=== PATIENT | female | born 1955 | race Caucasian/White ===

== ENCOUNTER 2016-08-22 23:48 | Inpatient (IN) | payer BC ==
[~2016-08-22] VITALS: Ht 170.2 cm; Wt 61.7 kg
[~2016-08-22 23:48] MED LIST: BUPR-96 PO; FURO-144 PO; Folic Acid PO; MULT-479 PO; PANT40TA4 PO; POTA10TA PO; SPIR25TA PO
--- NOTE | 2016-08-23 | NUR ---
PT C/O MID ABDOMINAL PAIN X 1 DAY WITH N/V PT DENIES DIARRHEA. PT AOX4 RR EVEN AND UNLABORED. NO SOB NOTED. NAD NOTED. NO NVD AT THIS TIME. PT NOT DIAPHORETIC. PT GOWNED AND PLACED ON MONTIOR.
[2016-08-23] MEDS ORDERED: IV NS 0.9% 500 ML IV ONE (00:17)
[2016-08-23] MEDS ORDERED: IV SET PRIMARY 1 EA INFUS.SET MC ONE (00:17)
[2016-08-23] MEDS ORDERED: ONDANSETRON HCL/PF 4 MG/2 ML VIAL ONE (00:17)
[2016-08-23] MEDS ORDERED: MORPHINE SULFATE INJ 4 MG/ML DISP.SYRIN ONE ×2 (00:17→01:47)
[2016-08-23 00:27] LABS: BASOPHILS # (AUTO) 0.1 /CMM (0.0-0.2); BASOPHILS % (AUTO) 0.7 % (0.0-2.0); EOSINOPHILS % (AUTO) 0.1 % (0.0-6.0); HEMATOCRIT 30 % (33-45); HEMOGLOBIN 9.7 g/dL (11.5-14.8); LYMPHOCYTES # (AUTO) 1.3 /CMM (0.8-4.8); LYMPHOCYTES % (AUTO) 13.4 % (20.0-44.0); MEAN CORPUSCULAR HEMOGLOBIN 24 PG (26.0-33.0); MEAN CORPUSCULAR HGB CONC 32 g/dl (31.0-36.0); MEAN CORPUSCULAR VOLUME 73 fL (82-100); MONOCYTES # (AUTO) 0.2 /CMM (0.1-1.30); MONOCYTES % (AUTO) 2.4 % (2.0-12.0); NEUTROPHILS # (AUTO) 7.8 /CMM (1.8-8.9); NEUTROPHILS % (AUTO) 83.4 % (43.0-81.0); PLATELET COUNT (AUTO) 254 /CMM (150-450); RDW COEFFICIENT OF VARIATION 20.7 (11.5-15.0); RED BLOOD CELL COUNT(AUTO) 4.09 MIL/uL (4.0-5.2); WHITE BLOOD COUNT (AUTO) 9.3 K/uL (4.3-11.0)
[2016-08-23] MEDS ORDERED: IV NS 0.9% 500 ML BAG IV ONE (00:30)
[2016-08-23] MEDS ORDERED: MORPHINE SULFATE INJ 2 MG/ML DISP.SYRIN IV ONE ×2 (00:30→02:00)
[2016-08-23] MEDS ORDERED: ONDANSETRON HCL/PF 4 MG/2 ML VIAL IVP ONE (00:30)
--- NOTE | 2016-08-23 00:49 | NUR ---
URINE COLLECTED. CALLED LAB FOR SECURITY REP.
[2016-08-23 01:05] LABS: APPEARANCE,URINE SL CLOUDY (CLEAR); BILIRUBIN,URINE NEGATIVE (NEGATIVE); BLOOD, URINE NEGATIVE Ery/uL (NEGATIVE); COLOR,URINE YELLOW (YELLOW); KETONES,URINE 1+ (NEGATIVE); LEUKOCYTE ESTERASE ,URINE TRACE (NEGATIVE); NITRITE, URINE POSITIVE (NEGATIVE); PROTEIN,URINE NEGATIVE (NEGATIVE); UGLUCOSE NEGATIVE (NEGATIVE); UROBILINOGEN,URINE 0.2 EU/dL (0.2)
[2016-08-23 01:32] LABS: ADD URINE CULTURE YES; BACTERIA,URINE 4+ /HPF (None Seen); SQUAMOUS EPITHELIAL CELL,UR Few /HPF (None Seen)
[2016-08-23 01:35] LABS: ALANINE AMINOTRANSFERASE 27 U/L (12-78); ALBUMIN 4.1 g/dL (3.4-5.0); ALKALINE PHOSPHATASE 75 U/L (46-116); ASPARTATE AMINOTRANSFERASE 29 U/L (15-37); BILIRUBIN,DIRECT 0.1 mg/dL (0.0-0.2); BILIRUBIN,TOTAL 0.6 mg/dL (0.2-1.0); CALCIUM, SERUM 10.8 mg/dL (8.5-10.1); CARBON DIOXIDE 22 mmol/L (21-32); CHLORIDE 99 mmol/L (98-107); GFR 56 mL/min (>60); GLUCOSE 143 mg/dL (74-106); LIPASE 117 U/L (73-393); POTASSIUM 4.3 mmol/L (3.5-5.1); SODIUM SERUM 136 mmol/L (136-145); TOTAL PROTEIN, SERUM 8.6 g/dL (6.4-8.2); TROPONIN I < 0.017 ng/mL (0.00-0.056); UREA NITROGEN, BLOOD 16 mg/dL (7-18)
[2016-08-23] MEDS ORDERED: IV D5W 50 ML IV ONE ×2 (02:30→04:33)
[2016-08-23] MEDS ORDERED: IV SET PRIMARY PUMP SET 1 EA INFUS.SET MC ONE ×2 (02:30→03:40)
[2016-08-23] MEDS ORDERED: CEFTRIAXONE 1 G VIAL ONE (02:30)
[2016-08-23] MEDS ORDERED: CEFTRIAXONE 1GM BAG (ER ONLY) 1 GM/50 ML PIGGYBACK IV ONE (02:30)
--- NOTE | 2016-08-23 02:35 | NUR ---
CALLED DR. CHRISTIAN ([phone]) FOR SURGICAL CONSULT; CALL TRANSFERED TO DR. ALEX.
--- NOTE | 2016-08-23 02:40 | NUR ---
DR. ALEX AT BEDSIDE FOR EVAL OF HERNIA
--- NOTE | 2016-08-23 02:47 | NUR ---
SOLOMON YANEZ PAGED
[2016-08-23] MEDS ORDERED: IV NS 0.9% 1,000 ML IV PRN (02:55)
[2016-08-23] MEDS ORDERED: Z GUARD REMEDY 2 OZ OINT TP PRN (03:00)
[2016-08-23] MEDS ORDERED: ZOLPIDEM TARTRATE 5 MG TABLET PO PRN (03:00)
[2016-08-23] MEDS ORDERED: MAG HYDROX/AL HYDROX/SIMETH 30 ML UDC PO PRN (03:00)
[2016-08-23] MEDS ORDERED: MAGNESIUM HYDROXIDE 30 ML UDC PO PRN (03:00)
[2016-08-23] MEDS ORDERED: ACETAMINOPHEN 325 MG TABLET PO PRN (03:00)
[2016-08-23] MEDS ORDERED: ONDANSETRON HCL/PF 4 MG/2 ML VIAL IVP PRN (03:00)
[2016-08-23] MEDS ORDERED: HYDROCODONE/APAP 5/325MG 1 EACH TABLET PO PRN ×2 (03:00→13:30)
--- NOTE | 2016-08-23 03:27 | NUR ---
REPORT GIVEN TO REJI HANDY FOR BETHANIE BED 120-B
[2016-08-23 03:40] VITALS: BP 109/66
[2016-08-23] MEDS ORDERED: IV NS 0.9% 1,000 ML ONE (03:40)
[2016-08-23] MEDS ORDERED: HYDROMORPHONE 1 MG/1 ML DISP.SYRIN ONE (03:51)
[2016-08-23 04:00] VITALS: BP 109/66
--- NOTE | 2016-08-23 04:00 | NUR ---
RN NOTES 0340 - ADMITTED 61Y/O FEMALE ACCOMPANIED BY VIA STRETCHER. AOX4 ABLE TO MAKE KNOWN NEEDS, CAME WITH COMPLAIN OF ABDOMINAL PAIN X 1 DAY WITH N/V IN ER. NO SOB OR RESP. DISTRESS IN RA SATING 97% PT IS ADMITTED UNDER SOLOMON JARRETT DIAGNOSED WITH SBO SECONDARY TO STRANGULATED HERNIA WITH HX. OF LEFT DELTOID MELANOMA, AND LEFT ARM MELANOMA REMOVAL, MID ABD. HERNIA , BREAST IMPLANT, TUMMY TUCK NKA. ABLE TO AMBULATE WELL. IV SITE ON RAC G 18 AND LAC G20 RUNNING WITH NS @ 100CC/HR INTACT AND PATENT. PT COMPLAINING OF PAIN AND STATED THAT STARTED TO INCREASE MORE. PLAN OF CARE INFORMED VERBALIZED UNDERSTANDING. WILL CONTINUE TO MONITOR. KEPT PT CLEAN AND COMFORTABLE IN BED. CLARIBEL LIGHT WITHIN REACH INSTRUCTION PROVIDED. ALL NEEDS ATTENDED. WILL CONTINUE TO MONITOR.
[2016-08-23] MEDS: HYDROMORPHONE INJ 2 MG/ML DISP.SYRIN IV PRN ×5 (04:03→22:23)
[2016-08-23] MEDS ORDERED: PIPERACILLIN /TAZOBACTAM 3.375 G VIAL IV ONE (04:32)
[2016-08-23] MEDS ORDERED: SECONDARY IV SET 1 EA INFUS.SET MC ONE ×2 (04:33→19:40)
--- NOTE | 2016-08-23 04:35 | NUR ---
RN NOTES PRN PAIN MEDICINE GIVEN ORDERED FOR ABDOMINAL PAIN. WILL CONTINUE TO MONITOR.
[2016-08-23] MEDS: PIPERACILLIN /TAZOBACTAM 3.375 G in IV D5W 50 ML IV SCH ×4 (05:09→23:16)
--- NOTE | 2016-08-23 06:40 | NUR ---
RN NOTES PT RESTING ON BED. TOLERATED PAIN AT THIS TIME AT SCALE OF 3/10. ALL NEEDS ATTENDED. NO EXCRUCIATING PAIN NOTED. REMAINED AOX 4 VERBALIZED NEEDS. IVF ONGOING ORDERED. EXPLAINED REGARDING THE PLAN OF CARE. KEPT CLEAN AND COMFORTABLE IN BED. ASSISTED TO THE BATHROOM. CALL LIGHT KEPT WITHIN EASY REACH. WILL ENDORSED CONTINUITY OF CARE TO AM NURSE.
[2016-08-23 06:41] LABS: BASOPHILS % (AUTO) 0.5 % (0.0-2.0); EOSINOPHILS % (AUTO) 0.1 % (0.0-6.0); HEMATOCRIT 27 % (33-45); HEMOGLOBIN 8.9 g/dL (11.5-14.8); LYMPHOCYTES # (AUTO) 1.4 /CMM (0.8-4.8); LYMPHOCYTES % (AUTO) 16.4 % (20.0-44.0); MEAN CORPUSCULAR HEMOGLOBIN 24 PG (26.0-33.0); MEAN CORPUSCULAR HGB CONC 32 g/dl (31.0-36.0); MEAN CORPUSCULAR VOLUME 74 fL (82-100); MONOCYTES # (AUTO) 0.4 /CMM (0.1-1.30); NEUTROPHILS # (AUTO) 6.7 /CMM (1.8-8.9); PLATELET COUNT (AUTO) 200 /CMM (150-450); RDW COEFFICIENT OF VARIATION 20.4 (11.5-15.0); WHITE BLOOD COUNT (AUTO) 8.6 K/uL (4.3-11.0)
[2016-08-23 07:01] LABS: ALBUMIN 3.4 g/dL (3.4-5.0); BILIRUBIN,TOTAL 0.4 mg/dL (0.2-1.0); CALCIUM, SERUM 9.6 mg/dL (8.5-10.1); CREATININE 0.9 mg/dL (0.6-1.3); MAGNESIUM 1.8 mg/dL (1.8-2.4); PHOSPHORUS 4.2 mg/dL (2.5-4.9); POTASSIUM 4.2 mmol/L (3.5-5.1); TOTAL PROTEIN, SERUM 7.4 g/dL (6.4-8.2)
[2016-08-23 07:13] LABS: INR 1.04 (0.87-1.13); PROTHROMBIN TIME 11.1 SECS (9.5-12.7)
--- NOTE | 2016-08-23 07:28 | NUR ---
INITIAL NOTE patient resting in bed, A+Ox4. states having 7/10 pain, requesting Dilaudid. Abdomen noted hard, non-distended, protruding hernia @ umbilicus. skin intact. bowel sounds hypoactive. LAC IV patent with IV fluids infusing- NS @ 100. Breathing even and unlabored, WNL, on room air. discussed plan of care, plan for surgery today, no order yet. call light in reach.
[2016-08-23 08:00] VITALS: BP 116/61
[2016-08-23] MEDS: PANTOPRAZOLE 40 MG VIAL IV SCH (08:42)
[2016-08-23 09:17] LABS: ANISOCYTOSIS 1+; HYPOCHROMASIA 1+; LYMPHOCYTES % (MANUAL) 11 % (16-48); MONOCYTES % (MANUAL) 3 % (0-11.0); NEUTROPHILS % (MANUAL) 86 (42-76); PLATELET ESTIMATE ADEQUATE
[2016-08-23] MEDS ORDERED: BUPIVACAINE MPF W/EPI 0.25% 30 ML VIAL ONE (09:44)
[2016-08-23] MEDS ORDERED: LIDOCAINE HCL/PF 1% 30 ML SDV ONE (09:44)
[2016-08-23] MEDS ORDERED: MIDAZOLAM HCL 2 MG/2ML VIAL ONE (10:04)
[2016-08-23] MEDS ORDERED: FENTANYL PF 100MCG/2ML AMPUL ONE ×2 (10:04)
[2016-08-23] MEDS ORDERED: ROCURONIUM BROMIDE 50 MG/5 ML ONE (10:04)
--- NOTE | 2016-08-23 10:06 | NUR ---
rn note Dr. Barry Her gave telephone order to obtain consent for exploratory laparotomy with possible reduction of bowel and repair of umbilical hernia. Patient signed consent for procedure, anesthesia and blood transfusion. 2 OR RNs at bed side during consent. left to OR in stable condition accompanied by staff.
[2016-08-23 12:00] VITALS: BP 118/67
[2016-08-23] MEDS ORDERED: IV LR 1000 ML 1,000 ML IV PRN (13:30)
[2016-08-23 16:00] VITALS: BP 114/62
[2016-08-23] MEDS: SPIRONOLACTONE 25 MG TABLET PO SCH (17:10)
--- NOTE | 2016-08-23 17:58 | NUR ---
rn note patient returned from surgery at approximately 1300 in stable condition. VSS. abd dressing CDI. returned with yip catheter. Called surgeon and asked if ok to remove. said yes remove.
--- NOTE | 2016-08-23 18:46 | NUR ---
rn note Dr. Núñez at nurses station reviewing pathology report, also notified dr. toure of pathology report in chart. removed yip catheter. no complications. patient tolerated procedure. provided bed bath and linen change.
--- NOTE | 2016-08-23 18:47 | NUR ---
consent signed for CT with contrast. patient verbalized understanding.
--- NOTE | 2016-08-23 19:30 | NUR ---
MS RN INITIAL NOTE PT RECEIVED RESTING IN BED. A/O X4 AND ABLE TO MAKE NEEDS KNOWN. ON ROOM AIR AND SATING WELL. [facility] SITE RAC #18G CLEAN, DRY AND INTACT. IV FLUIDS WELL TOLERATED. NO C/O PAIN AT THIS TIME. INFORMED PT OF NPO STATUS STARTING AT 3AM FOR PROCEDURE IN THE MORNING. PT VERBALIZED UNDERSTANDING. ALL SAFETY MEASURES IN PLACE. CALL LIGHT WITHIN EASY REACH. WILL CONTINUE TO MONITOR.
--- NOTE | 2016-08-23 19:35 | NUR ---
closing note left patient in stable condition. LOC and breathing normal. bowel sounds present. no gas passed. endorsed to night nurse and to monitor urine u/o s/p f/c removal.. endorsed to plan NPO for CT exam in AM. NPO @ approximately 3am, radiologist confirmed CT in AM. Patient tolerated clear liquid diet. no nausea or vomiting. call light in reach.
[2016-08-23 19:45] LABS: URIC ACID 5.9 mg/dL (2.6-7.2)
[2016-08-23 20:00] VITALS: BP 97/66
[2016-08-23] MEDS: SOD FERRIC GLUC 125 MG in IV NS 0.9% 100 ML IV SCH (20:17)
[2016-08-24] VITALS (11 sets, daily range): BP systolic 90–110; BP diastolic 48–70
[2016-08-24] MEDS: IV NS 0.9% 1,000 ML IV PRN (00:04)
--- NOTE | 2016-08-24 01:45 | NUR ---
MS RN NOTE CONTINUATION OF CARE ENDORSED.
--- NOTE | 2016-08-24 01:45 | NUR ---
RN NOTE RECEIVED PATIENT IN NO ACUTE DISTRESS IN BED. PT IS A/O X 4 AND ABLE TO MAKE NEEDS KNOWN. RECEIVED REPORT FROM ELIAS MENDOZA FOR CONTINUITY OF CARE. WILL CONTINUE TO MONITOR FOR ANY CHANGES IN CONDITION.
[2016-08-24] MEDS: HYDROMORPHONE INJ 2 MG/ML DISP.SYRIN IV PRN ×5 (03:00→20:31)
--- NOTE | 2016-08-24 03:00 | NUR ---
RN NOTE UNSCHEDULED ADMINISTRATION DUE TO BATTERY DYING ON COMPUTER PRIOR TO SAVE.
[2016-08-24 06:05] LABS: BASOPHILS % (AUTO) 0.4 % (0.0-2.0); EOSINOPHILS % (AUTO) 0.2 % (0.0-6.0); HEMATOCRIT 24 % (33-45); HEMOGLOBIN 7.6 g/dL (11.5-14.8); LYMPHOCYTES % (AUTO) 26.1 % (20.0-44.0); MEAN CORPUSCULAR HEMOGLOBIN 23 PG (26.0-33.0); MEAN CORPUSCULAR HGB CONC 31 g/dl (31.0-36.0); MEAN CORPUSCULAR VOLUME 75 fL (82-100); MONOCYTES # (AUTO) 0.5 /CMM (0.1-1.30); MONOCYTES % (AUTO) 6.1 % (2.0-12.0); NEUTROPHILS # (AUTO) 5.2 /CMM (1.8-8.9); NEUTROPHILS % (AUTO) 67.2 % (43.0-81.0); PLATELET COUNT (AUTO) 164 /CMM (150-450); RDW COEFFICIENT OF VARIATION 20.8 (11.5-15.0); RED BLOOD CELL COUNT(AUTO) 3.26 MIL/uL (4.0-5.2); WHITE BLOOD COUNT (AUTO) 7.8 K/uL (4.3-11.0)
[2016-08-24] MEDS: PIPERACILLIN /TAZOBACTAM 3.375 G in IV D5W 50 ML IV SCH ×3 (06:05→17:45)
[2016-08-24 06:17] LABS: CALCIUM, SERUM 8.9 mg/dL (8.5-10.1); CREATININE 0.8 mg/dL (0.6-1.3); MAGNESIUM 1.6 mg/dL (1.8-2.4); PHOSPHORUS 3.3 mg/dL (2.5-4.9); POTASSIUM 4.2 mmol/L (3.5-5.1)
--- NOTE | 2016-08-24 06:51 | NUR ---
RN CLOSING NOTE PT REMAINS IN NO ACUTE DISTRESS. PT DID NOT HAVE ANY SIGNIFICANT CHANGE IN CONDITION DURING SHIFT. ALL NEEDS MET ALL ORDERS CARRIED OUT. WILL ENDORSE TO AM RN FOR CONTINUITY OF CARE.
--- NOTE | 2016-08-24 07:00 | NUR ---
MS RN INITIAL NOTE PT RECEIVED RESTING IN BED. A/O X4 AND ABLE TO MAKE NEEDS KNOWN. ON ROOM AIR AND SATING WELL. [facility] SITE RAC #18G CLEAN, DRY AND INTACT. IV FLUIDS WELL TOLERATED. NO C/O PAIN AT THIS TIME. INFORMED PT OF NPO STATUS STARTING AT 3AM FOR PROCEDURE IN THE MORNING. PT VERBALIZED UNDERSTANDING. ALL SAFETY MEASURES IN PLACE. CALL LIGHT WITHIN EASY REACH. WILL CONTINUE TO MONITOR
[2016-08-24] MEDS ORDERED: PANTOPRAZOLE 40 MG TABLET.DR PO SCH (07:30)
[2016-08-24] MEDS: BUPROPION XL 150 MG TAB.ER.24 PO SCH (08:48)
[2016-08-24] MEDS: PANTOPRAZOLE 40 MG VIAL IV SCH (08:48)
[2016-08-24] MEDS: MULTIVITAMINS W-MINERALS 1 TAB TABLET PO SCH (08:48)
[2016-08-24] MEDS: SPIRONOLACTONE 25 MG TABLET PO SCH ×2 (08:48→17:45)
[2016-08-24] MEDS: FUROSEMIDE 40 MG TABLET PO SCH (08:48)
[2016-08-24] MEDS ORDERED: IOHEXOL-300 100 ML VIAL IV ONE (08:55)
[2016-08-24] MEDS ORDERED: IV NS 0.9% 250 ML IV ONE ×2 (08:55→18:47)
[2016-08-24] MEDS ORDERED: CT SWABBABLE VALVE TRANS SET 1 EA INFUS.SET MC ONE (08:55)
[2016-08-24] MEDS: Magnesium 1GM/D5W 100ML PREMIX 100 ML IV SCH ×2 (12:03→13:53)
[2016-08-24] MEDS: MORPHINE SULFATE INJ 2 MG/ML DISP.SYRIN IV PRN (12:40)
[2016-08-24] MEDS ORDERED: CEFTRIAXONE 1 G in IV D5W 50 ML IV SCH (13:00)
[2016-08-24] MEDS ORDERED: Magnesium 1GM/D5W 100ML PREMIX 100 ML IV SCH (13:00)
[2016-08-24] MEDS: SOD FERRIC GLUC 125 MG in IV NS 0.9% 100 ML IV SCH (13:37)
[2016-08-24] MEDS ORDERED: IV SET PRIMARY PUMP SET 1 EA INFUS.SET MC ONE (13:38)
[2016-08-24] MEDS ORDERED: SOD FERRIC GLUC 125 MG in IV NS 0.9% 100 ML IV SCH (14:00)
[2016-08-24 14:03] LABS: CARCINOEMBRYONIC AG (CEA) 3.2 ng/mL (0.0-4.7)
[2016-08-24] MEDS ORDERED: BLOOD IV SET 1 EA INFUS.SET MC ONE (18:47)
--- NOTE | 2016-08-24 19:00 | NUR ---
RN INITIAL NOTE RECEIVED PATIENT IN NO ACUTE DISTRESS IN BED. PT IS A/O X 4 AND ABLE TO MAKE NEEDS KNOWN. RECEIVED REPORT FROM BAILEY FOR CONTINUITY OF CARE. WILL CONTINUE TO MONITOR FOR ANY CHANGES IN CONDITION.
--- NOTE | 2016-08-24 19:20 | NUR ---
pt in stable condition,no c/o pain,no s/s of distress.breathing even and unlabored.all m.d orders noted and carried out.endorsed to next shift for continuity of care
--- NOTE | 2016-08-24 20:03 | NUR ---
RN NOTE: PT IS RECEIVING ONE UNIT OF BLOOD. BLOOD STARTED AT 2002. VITALS ARE STABLE TEMP: 97.6 PULSE: 69 RESP: 16 O2:96 ROOM AIR BP: 97/55
--- NOTE | 2016-08-24 20:18 | NUR ---
RN NOTES: PT RECEIVING BLOOD TRANSFUSION. 15 MIN CHECK. PT IS TOLERATING WELL WITH NO S/S OF DISTRESS OR DISCOMFORT. VITAL SIGNS ARE STABLE. TEMP: 97.5 PULSE: 76 RES: 18 B/P: 103/52. WILL CONTINUE TO MONITOR.
--- NOTE | 2016-08-24 20:33 | NUR ---
RN NOTE: PT RECEIVING BLOOD TRANSFUSION. 2ND 15 MIN CHECK. PT TOLERATING WELL WITH NO S/S OF DISTRESS OR DISCOMFORT. PT VITALS ARE STABLE. TEMP: 98.6 PULSE: 75 RESP: 17 B/P: 104/70. WILL CONTINUE TO MONITOR PT.
--- NOTE | 2016-08-24 21:03 | NUR ---
RN NOTES: PT RECEIVING BLOOD TRANSFUSION. 30 MIN CHECK @ 2103: PT IS TOLERATING TRANSFUSION WELL. NO S/S OF DISTRESS. VITAL SIGNS ARE STABLE TEMP: 97.6 PULSE: 65 RESP: 18 B/P 91/48. PT IS ALERT AND ORIENTED X4. WILL CONTINUE TO MONITOR.
--- NOTE | 2016-08-24 23:38 | NUR ---
RN NOTES: PT IS RECEIVING BLOOD TRANSFUSION. PT HAS COMPLETED TRANSFUSION @ 2339 PT TOLERATED TRANSFUSION WELL. PT IS ALERT AND ORIENTED X4. PT VITALS ARE WITHIN NORMAL RANGE. TEMP: 97.6 PULSE: 81 RESP: 18 B/P: 103/55. WILL CONTINUE TO MONITOR PT.
--- NOTE | 2016-08-24 23:53 | NUR ---
RN NOTES: PT RECEIVED BLOOD TRANSFUSION ENDED AT 3948. PT IS DOING WELL POST TRANSFUSION. PT IS AWAKE/ALERT AND ORIENTED X4. PT VITALS ARE WITHIN NORMAL RANGE TEMP: 97.5 PULSE: 78 RESP: 18 O2: 97 B/P105/63
[2016-08-25] MEDS: PIPERACILLIN /TAZOBACTAM 3.375 G in IV D5W 50 ML IV SCH ×4 (00:22→17:59)
[2016-08-25] MEDS: HYDROMORPHONE INJ 2 MG/ML DISP.SYRIN IV PRN ×5 (00:34→20:10)
[2016-08-25] MEDS ORDERED: IV NS 0.9% 1,000 ML ONE (01:26)
[2016-08-25] MEDS: IV NS 0.9% 1,000 ML IV PRN ×2 (01:33→22:55)
[2016-08-25] MEDS: MORPHINE SULFATE INJ 2 MG/ML DISP.SYRIN IV PRN (02:31)
[2016-08-25 04:00] VITALS: BP_SYST 109; BP_SYST 98; BP_DIAS 50; BP_DIAS 56
--- NOTE | 2016-08-25 06:58 | NUR ---
RN CLOSING NOTES: PT IS AWAKE IN BED AND STABLE. A/O X4. PT DENIES PAINS. PT SHOW NO S/S OF DISTRESS OR DISCOMFORT. IV INTACT AND PATENT RUNNING IV FLUIDS. PATIENT TOLERATED ALL CARE WELL THROUGHOUT THE PM SHIFT. PT HAS BEEN ENDORSED TO AM SHIFT FOR KATHRIN.
[2016-08-25 07:01] LABS: CALCIUM, SERUM 8.5 mg/dL (8.5-10.1); CREATININE 0.8 mg/dL (0.6-1.3); MAGNESIUM 1.5 mg/dL (1.8-2.4); POTASSIUM 3.4 mmol/L (3.5-5.1)
[2016-08-25 07:05] LABS: BASOPHILS % (AUTO) 0.4 % (0.0-2.0); EOSINOPHILS # (AUTO) 0.1 /CMM (0.0-0.7); EOSINOPHILS % (AUTO) 1.5 % (0.0-6.0); HEMATOCRIT 28 % (33-45); HEMOGLOBIN 8.9 g/dL (11.5-14.8); LYMPHOCYTES # (AUTO) 2.8 /CMM (0.8-4.8); MEAN CORPUSCULAR HEMOGLOBIN 24 PG (26.0-33.0); MEAN CORPUSCULAR HGB CONC 32 g/dl (31.0-36.0); MEAN CORPUSCULAR VOLUME 76 fL (82-100); MONOCYTES # (AUTO) 0.7 /CMM (0.1-1.30); MONOCYTES % (AUTO) 8.4 % (2.0-12.0); NEUTROPHILS # (AUTO) 5.1 /CMM (1.8-8.9); NEUTROPHILS % (AUTO) 57.7 % (43.0-81.0); PLATELET COUNT (AUTO) 155 /CMM (150-450); RDW COEFFICIENT OF VARIATION 19.6 (11.5-15.0); RED BLOOD CELL COUNT(AUTO) 3.67 MIL/uL (4.0-5.2); WHITE BLOOD COUNT (AUTO) 8.9 K/uL (4.3-11.0)
--- NOTE | 2016-08-25 07:20 | NUR ---
MS RN INITIAL NOTES: Rec'd pt awake on bed, A&O x4, not in any distress, c/o abdominal pain 9/10, on pain meds [id number]. Pt on room air, no SOB, saturating at 94%. Pt has R wrist G22 IV line, patent, clean, dry, and intact, no signs of infection/ infiltration noted, w/ NS 1L x 75 cc/hr, infusing well. Pt has RFA G20, SL, flushed, patent, clean, dry, and intact, no signs of infection/ infiltration noted. Needs attended. Provided comfort and safety measures. Call light placed w/in reached. Bed kept low and in locked position. Will continue to monitor.
[2016-08-25 08:00] VITALS: BP 95/57
[2016-08-25] MEDS: PANTOPRAZOLE 40 MG VIAL IV SCH (08:34)
[2016-08-25] MEDS: BUPROPION XL 150 MG TAB.ER.24 PO SCH (08:35)
[2016-08-25] MEDS: MULTIVITAMINS W-MINERALS 1 TAB TABLET PO SCH (08:35)
[2016-08-25] MEDS: FUROSEMIDE 40 MG TABLET PO SCH (09:00)
[2016-08-25] MEDS: SPIRONOLACTONE 25 MG TABLET PO SCH ×2 (09:00→16:40)
--- NOTE | 2016-08-25 09:39 | NUR ---
MS RN NOTES: Pt seen and examined by Dr. Land, orders made and carried out.
--- NOTE | 2016-08-25 09:47 | NUR ---
MS RN NOTES: Pt's BP rechecked twice, SBP <100 (99/56 and 92/54), BP meds hold for now.
[2016-08-25] MEDS ORDERED: POTASSIUM CHLORIDE 20 MEQ TAB.PRT.SR PO ONE (10:00)
--- NOTE | 2016-08-25 10:08 | NUR ---
MS RN NOTES: Pt seen and examined by Dr. Ashby.
[2016-08-25] MEDS: Magnesium 1GM/D5W 100ML PREMIX 100 ML IV SCH ×4 (10:14→14:13)
[2016-08-25] MEDS: SOD FERRIC GLUC 125 MG in IV NS 0.9% 100 ML IV SCH (14:35)
[2016-08-25 16:00] VITALS: BP 102/56
--- NOTE | 2016-08-25 19:42 | NUR ---
MS RN CLOSING NOTES: No acute changes noted w/in shift. Pt A&O x4, not in any distress. Pt on room air, no SOB, saturating at 94%. Pt has R wrist G22 IV line, patent, clean, dry, and intact, no signs of infection/ infiltration noted, w/ NS 1L x 75 cc/hr, infusing well. Pt has RFA G20, SL, flushed, patent, clean, dry, and intact, no signs of infection/ infiltration noted. Kept comfortable, warm, & rested. Call light placed w/in reached. Bed kept low and in locked position. Endorsed to PM RN.
[2016-08-25 20:00] VITALS: BP 98/55
[2016-08-26] MEDS: HYDROMORPHONE INJ 2 MG/ML DISP.SYRIN IV PRN ×2 (00:14→05:13)
[2016-08-26] MEDS: PIPERACILLIN /TAZOBACTAM 3.375 G in IV D5W 50 ML IV SCH ×2 (00:19→05:31)
[2016-08-26 04:00] VITALS: BP 97/53
[2016-08-26 07:34] LABS: CALCIUM, SERUM 8.8 mg/dL (8.5-10.1); CREATININE 0.7 mg/dL (0.6-1.3); POTASSIUM 4.2 mmol/L (3.5-5.1)
[2016-08-26 08:00] VITALS: BP 128/77
--- NOTE | 2016-08-26 08:00 | NUR ---
MS1/RN AM SHIFT INITIAL NOTES RECEIVED PT AWAKE SITTING IN BED, PT A/O X 4, COMPLAINT OF GENERALIZED PAIN RATED 8/10. DENIES ANY OTHER SYMPTOMS. ON ROOM AIR SATURATING @ 97%. WITH ON GOING IV HYDRATION WITH NS @ 75CC/HR, IV SITE PATENT WITH NO S/S OF INFECTION. SURGICAL SITE IN THE ABDOMEN AREA CLEAN & DRY, HEALING VERY WELL. SCHEDULED AM MEDS TO BE GIVEN, TO INCLUDE PRN MEDICATION FOR PAIN. CL WITH REACHED AND SAFETY MAINTAINED. ON GOING MONITORING.
[2016-08-26] MEDS: MORPHINE SULFATE INJ 2 MG/ML DISP.SYRIN IV PRN (08:33)
[2016-08-26] MEDS: PANTOPRAZOLE 40 MG VIAL IV SCH (08:33)
[2016-08-26] MEDS: FUROSEMIDE 40 MG TABLET PO SCH (08:34)
[2016-08-26] MEDS: SPIRONOLACTONE 25 MG TABLET PO SCH (08:34)
[2016-08-26] MEDS: BUPROPION XL 150 MG TAB.ER.24 PO SCH (08:34)
[2016-08-26] MEDS: MULTIVITAMINS W-MINERALS 1 TAB TABLET PO SCH (08:34)
[2016-08-26] MEDS ORDERED: LEVO750T21 PO (09:22)
[2016-08-26] MEDS ORDERED: DOCU-270 GT (09:22)
[2016-08-26] MEDS ORDERED: HYDR-3326 PO (09:22)
--- NOTE | 2016-08-26 09:30 | NUR ---
MS1/RN ROUNDS - DR. HANEY PT SEEN & EXAMINED BY DR. HANEY, WITH ORDER RECEIVED TO DISCHARGE PT HOME. ORDER NOTE AND TO BE CARRIED OUT. DISCHARGE PROTOCOLS IN PROCESS.
--- NOTE | 2016-08-26 11:45 | NUR ---
MS1/BONER MEAT TO HOME DISCHARGE INSTRUCTIONS GIVEN TO PT, VERBALIZED UNDERSTANDING. DISCHARGE DOCUMENTS TO INCLUDE PRESCRIPTION GIVEN TO PT. PERSONAL BELONGINGS RETURNED TO PT, INVENTORY LOG SIGNED OFF. ID BAND REMOVED. IV SITES REMOVED, PRESSURE DRESSING APPLIED, NO S/S OF INFECTION. PT LEFT [facility] UNIT AMBULATORY WITH STEADY GAIT ACCOMPANIED BY HER , IN STABLE CONDITION.
== END 2016-08-26 11:46 | disposition home or self-care (01) | DRG 330 ==
LOC: ER 23:51 → TELE1 08-23 03:21 → MEDSG1 08-23 03:47
PROVIDERS: ADMIT Family Medicine; ATTEND Family Medicine
PROC: 0DQ84ZZ Repair Small Intestine, Percutaneous Endoscopic Approach (ICD-10-PCS; 2016-08-23)
PROC: 0WQF4ZZ Repair Abdominal Wall, Percutaneous Endoscopic Approach (ICD-10-PCS; principal; 2016-08-23 11:06)
PROC: 30233N1 Transfusion of Nonautologous Red Blood Cells into Peripheral Vein, Percutaneous Approach (ICD-10-PCS; 2016-08-24)
DX: K42.0 Umbilical hernia with obstruction, without gangrene (principal); K76.6 Portal hypertension; N39.0 Urinary tract infection, site not specified; F10.988 Alcohol use, unspecified with other alcohol-induced disorder; D62 Acute posthemorrhagic anemia; K70.31 Alcoholic cirrhosis of liver with ascites; B96.20 Unspecified Escherichia coli [E. coli] as the cause of diseases classified elsewhere; F32.9 Major depressive disorder, single episode, unspecified; F41.9 Anxiety disorder, unspecified; D52.9 Folate deficiency anemia, unspecified; D18.09 Hemangioma of other sites; Z72.0 Tobacco use; Z71.6 Tobacco abuse counseling; K31.9 Disease of stomach and duodenum, unspecified; D18.03 Hemangioma of intra-abdominal structures; D53.9 Nutritional anemia, unspecified; Z85.820 Personal history of malignant melanoma of skin; R59.0 Localized enlarged lymph nodes; K80.20 Calculus of gallbladder without cholecystitis without obstruction; R91.1 Solitary pulmonary nodule
CPT/HCPCS: 36415; 71010-TC; 74170-TC; 80048-TC; 80053-TC; 80076-TC; 81000-TC; 82105; 82306; 82378; 82728-TC; 82746; 83540-TC; 83615-TC; 83690-TC; 83735-TC; 84100-TC; 84484-TC; 84550-TC; 85025-TC; 85045-TC; 85730-TC; 86301; 86850-TC; 86921-TC; 87081-TC; 87086-TC; 87186-TC; A4606; A6402; C9113; J0696; J1100; J1170; J1885; J2250; J2270; J2405; J2543; J2704; J2710; J2916; J3010; J3475; J3490; J7030; J7040; J7050; J7060; P9016-BL; Q9967; Z7610